=== PATIENT | male | born 1975 | race Caucasian/White ===

== ENCOUNTER 2017-12-24 01:02 | Inpatient (IN) | payer OTHER ==
[~2017-12-24] VITALS: Ht 185.4 cm; Wt 64.9 kg
[2017-12-24 01:50] VITALS: BP 150/82
--- NOTE | 2017-12-24 01:50 | NUR ---
BP:150/82, HR:93, RR:16, SpO2:97%, T:98 Pt is in stable condition and able to be admitted on the unit. Unit protocols regarding medications and vital signs Q4H were explained. Pt verbalized understanding. Will continue admission upon arrival on the unit.
[2017-12-24] MEDS ORDERED: BLOOD SUGAR DIAGNOSTIC 1 EACH STRIP VI ONE (03:00)
[2017-12-24] MEDS ORDERED: IBUPROFEN 400 MG TABLET PO PRN (03:00)
[2017-12-24] MEDS ORDERED: DICYCLOMINE HCL 20 MG TABLET PO PRN (03:00)
[2017-12-24] MEDS ORDERED: ACETAMINOPHEN 325 MG TABLET PO PRN (03:00)
[2017-12-24] MEDS ORDERED: ONDANSETRON ODT 4 MG TAB.RAPDIS SL PRN (03:00)
[2017-12-24] MEDS ORDERED: CLONIDINE HCL 0.1 MG TABLET PO PRN (03:00)
[2017-12-24] MEDS ORDERED: ONDANSETRON 4 MG/2 ML VIAL IM PRN (03:00)
[2017-12-24] MEDS ORDERED: diphenhydrAMINE 50 MG CAPSULE PO PRN (03:00)
[2017-12-24] MEDS ORDERED: THIAMINE HCL 200 MG/2 ML VIAL IM ONE (03:00)
[2017-12-24] MEDS ORDERED: LORAZEPAM 2 MG/1 ML VIAL IM PRN (03:00)
[2017-12-24] MEDS ORDERED: LOPERAMIDE HCL 2 MG CAPSULE PO PRN ×2 (03:00)
[2017-12-24] MEDS ORDERED: HYDROXYZINE PAMOATE 25 MG CAPSULE PO PRN (03:00)
[2017-12-24] MEDS ORDERED: MAG HYDROX/AL HYDROX/SIMETH 30 ML LIQUID UDC PO PRN (03:00)
[2017-12-24] MEDS ORDERED: MIRALAX 17 GM POWD.PACK PO PRN (03:00)
[2017-12-24] MEDS ORDERED: MAGNESIUM HYDROXIDE 30 ML LIQUID UDC PO PRN (03:00)
[2017-12-24] MEDS ORDERED: LORAZEPAM 1 MG TABLET PO PRN ×2 (03:00)
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
[2017-12-24] MEDS ORDERED: INSU1CAR11 IH (03:14)
[2017-12-24] MEDS ORDERED: VARE1TAB PO (03:14)
[2017-12-24] MEDS ORDERED: INSU100I24 SQ (03:14)
[2017-12-24] MEDS ORDERED: INSU100I14 (03:14)
[2017-12-24] MEDS ORDERED: ALPR0.5T8 PO (03:14)
[2017-12-24] MEDS ORDERED: INSU100I19 SQ (03:14)
[2017-12-24] MEDS ORDERED: CHOL50004 PO (03:14)
[2017-12-24] MEDS ORDERED: ATOR10TA PO (03:14)
[2017-12-24] MEDS ORDERED: ZOLP10TA6 PO (03:14)
[2017-12-24] MEDS ORDERED: INSULIN REGULAR, HUMAN 300 UNIT/3 ML VIAL SQ PRN (03:30)
[2017-12-24] MEDS ORDERED: DEXTROSE 50% 50 ML DISP.SYRIN IV PRN (03:30)
--- NOTE | 2017-12-24 03:30 | NUR ---
ACCKIRILL Pt's blood sugar 122. Does not require insulin per sliding scale.
[2017-12-24 03:41] LABS: BASOPHILS % (AUTO) 0.2 % (0.0-2.0); EOSINOPHILS % (AUTO) 0.8 % (0.0-7.0); HEMATOCRIT 44.2 % (36.7-47.1); HEMOGLOBIN 15.3 g/dL (12.5-16.3); LYMPHOCYTES # (AUTO) 1.6 K/uL (20.0-40.0); LYMPHOCYTES % (AUTO) 26.7 % (20.5-51.5); MEAN CORPUSCULAR HEMOGLOBIN 32.6 uug (23.8-33.4); MEAN CORPUSCULAR HGB CONC 35 g/dL (32.5-36.3); MEAN CORPUSCULAR VOLUME 93.8 fL (73.0-96.2); MONOCYTES # (AUTO) 0.7 K/uL (2.0-10.0); NEUTROPHILS # (AUTO) 3.8 K/uL (1.8-8.9); NEUTROPHILS % (AUTO) 61.3 % (38.5-71.5); PLATELET COUNT (AUTO) 146 K/uL (152-348); RED BLOOD CELL COUNT(AUTO) 4.71 MIL/uL (4.06-5.63); WHITE BLOOD COUNT (AUTO) 6.2 K/uL (3.6-10.2)
[2017-12-24] MEDS: BLOOD SUGAR DIAGNOSTIC 1 EACH STRIP VI SCH ×5 (03:44→20:53)
[2017-12-24 03:49] LABS: ETHANOL < 3 MG/DL (0-0)
[2017-12-24 03:51] LABS: ALANINE AMINOTRANSFERASE 92 U/L (16-63); ALKALINE PHOSPHATASE 81 U/L (50-136); AMYLASE 65 U/L (25-115); ASPARTATE AMINOTRANSFERASE 72 U/L (15-37); BILIRUBIN,TOTAL 0.7 mg/dL (0.2-1.0); CARBON DIOXIDE 29 mmol/L (21-32); CHLORIDE 99 mmol/L (98-107); CREATININE 0.8 mg/dL (0.6-1.3); GLUCOSE 105 mg/dL (74-106); LIPASE 220 U/L (73-393); MAGNESIUM 1.9 mg/dL (1.8-2.4); POTASSIUM 3.1 mmol/L (3.5-5.1); TOTAL PROTEIN, SERUM 8.2 g/dL (6.4-8.2); UREA NITROGEN, BLOOD 8 mg/dL (7-18)
[2017-12-24 04:00] VITALS: BP 135/85
[2017-12-24 04:03] LABS: THYROID STIMULATING HORMONE 2.463 mIU/mL (0.358-3.740)
[2017-12-24 04:21] LABS: *AMPHETAMINE, URINE NEGATIVE (NEGATIVE); *BARBITURATE, URINE NEGATIVE (NEGATIVE); *CANNABINOID, URINE POSITIVE (NEGATIVE); *COCCAINE, URINE NEGATIVE (NEGATIVE); *OPIATE, URINE NEGATIVE (NEGATIVE); *PHENCYCLIDINE SCREEN,URINE NEGATIVE (NEGATIVE)
--- NOTE | 2017-12-24 07:10 | NUR ---
END OF SHIFT Pt is a 42 year old male admitted on 12/24/17 for ETOH withdrawal. He remains alert and oriented x4. He was noted with anxiety, restlessness and mild tremors during the shift. He did not receive or request PRN medications. He is not on a taper but has PRN medications available. Pt is diabetic type 2. Last accucheck was 122. He slept a total of 1 hrs, Intake:200mL, Void: x1, BM:x1. Breathing is even and unlabored, safety measures in place. Will continue to monitor.
--- NOTE | 2017-12-24 07:17 | NUR ---
Start of shift note; Received report from night nurse. Patient is a 42 year old male admitted on 12/24/17 for ETOH/Benzodiazepine withdrawal. Patient is on a consistent carb diet for Diabetes type 2, last Blood sugar is 122 mg/dl. Patient slept for 1 hour. Patient's last CIWA score is 6 per endorsement. Patient presented with anxiety, generalized discomfort, stomach cramps, restless legs, intermittent sweats. Patient's potassium is 3.1 to be supplement today at 0900. Patient to be evaluated by MD during MD rounds. All safety measures secured. Will continue to monitor patient.
[2017-12-24] MEDS ORDERED: BLOOD SUGAR DIAGNOSTIC 1 EACH STRIP VI SCH (07:30)
[2017-12-24 08:00] VITALS: BP 126/85
--- NOTE | 2017-12-24 08:00 | NUR ---
CIWA assessment; Patient's current CIWA is 9 manifested by anxiety, agitation, stomach cramps, avoidant to eye contact, generalized discomfort . Will continue to monitor patient. Addendum: 12/24/17 at 1316 by NELY RICHARDS LVN Patient was started on 4 day Ativan taper, medication given per MD order. Addendum: 12/24/17 at 1317 by NELY RICHARDS LVN Taper order to start at 1300
[2017-12-24] MEDS: THIAMINE HCL 100 MG TABLET PO SCH (08:54)
[2017-12-24] MEDS: FOLIC ACID 1 MG TABLET PO SCH (08:54)
[2017-12-24] MEDS: MULTIVITAMINS,THERAPEUTIC TABLET PO SCH (08:54)
[2017-12-24] MEDS ORDERED: POTASSIUM CHLORIDE 20 MEQ TAB.PRT.SR PO ONE (09:00)
[2017-12-24] MEDS ORDERED: 5 DAY TAPER OF LORAZEPAM -SERENITY PROTOCOL PO PRN (11:00)
--- NOTE | 2017-12-24 11:38 | NUR ---
Insulin administration; Patient blood sugar is 183 mg/dl, 3 units of Humulin insulin given SQ per sliding scale protocol. Patient tolerated well.
[2017-12-24 12:00] VITALS: BP 131/84
--- NOTE | 2017-12-24 12:00 | NUR ---
CIWA assessment; Patient's current CIWA is 9 manifested by anxiety, agitation, stomach cramps, avoidant to eye contact, generalized discomfort . Will continue to monitor patient. Patient to start Ativan taper today at 1300 to help reduce withdrawal symptoms. Addendum: 12/24/17 at 1320 by NELY RICHARDS LVN Clarification; Current CIWA score of 15
[2017-12-24] MEDS ORDERED: LORAZEPAM 1 MG TABLET PO SCH (13:00)
[2017-12-24 16:00] VITALS: BP 131/84
--- NOTE | 2017-12-24 16:00 | NUR ---
CIWA assessment; Patient's current CIWA is 14 manifested by anxiety, agitation, stomach cramps, avoidant to eye contact, generalized discomfort, anhedonia, fatigue, intermittent sweats . Will continue to monitor patient. Patient started Ativan taper help reduce withdrawal symptoms.
[2017-12-24] MEDS ORDERED: HUMALOG KWIK SQ SCH (16:30)
[2017-12-24] MEDS: HUMALOG KWIK SQ SCH ×2 (17:05→20:53)
--- NOTE | 2017-12-24 17:05 | NUR ---
Insulin Administration; Accu check done, obtained 142 mg/dl. 2 units of Humalog insulin given on patient's ABD RLQ per protocol sliding scale, patient tolerated procedure well. Medication and dose verified with Dariela Medina RN. Addendum: 12/24/17 at 1723 by Dariela Medina RN Verify blood sugar reading was 142, and verified 2 units of Humalog given per sliding scale.
[2017-12-24] MEDS: LORAZEPAM 1 MG TABLET PO SCH ×2 (17:06→20:53)
--- NOTE | 2017-12-24 18:17 | NUR ---
End of shift note; Patient is AOx4, presented with anxiety, agitation, stomach cramps, avoidant to eye contact, generalized discomfort, anhedonia, fatigue, intermittent sweats. Last CIWA score of 14 at 1600. Patient was placed on 4 day Ativan taper to help reduce withdrawal symptoms. Medications were effective in reducing withdrawal symptoms. Patient remained compliant with treatment plan and medication regime. All safety measures secured. Met all needs.
--- NOTE | 2017-12-24 19:30 | NUR ---
START OF SHIFT Pt is a 42 year old male admitted on 12/24/17 for ETOH/Benzodiazepine withdrawal. Per endorsement from day shift, Pt is on a consistent carb diet for Diabetes type 2, last Blood sugar is 122 mg/dl. Pt's last CIWA score is 14. Pt received lying in bed,A/A/O X 4.Pt presented with anxiety, generalized discomfort and intermittent sweats. Pt's potassium was supplemented today . Pt started on 4 day Ativan taper today and is tolerating well. All safety measures in place. Will continue to monitor for safety.
[2017-12-24 20:00] VITALS: BP 128/81
--- NOTE | 2017-12-24 20:00 | NUR ---
CIWA assessment; Pt's current CIWA is 11. Pt is c/o anxiety, appears somewhat agitated, stomach cramps, c/o generalized discomfort and fatigue. Pt is soon due for medications to help reduce withdrawal symptoms.
[2017-12-24] MEDS ORDERED: ATORVASTATIN 10 MG TABLET PO SCH (21:00)
[2017-12-24] MEDS ORDERED: PATIENT MAY USE OWN MED- MD OK PO SCH (21:00)
--- NOTE | 2017-12-24 22:05 | NUR ---
PRN Benadryl 50 mg PO given for c/o insomnia; will monitor for effectiveness.
[2017-12-24] MEDS ORDERED: PATIENT MAY USE OWN MED- MD OK PO ONE (22:30)
--- NOTE | 2017-12-24 23:05 | NUR ---
PRN REASSESSMENT Pt is resting in bed with eyes closed,breathing is even and non labored,no s/s of distress noted,will continue to monitor.
[2017-12-24] MEDS ORDERED: INSULIN LISPRO 1000 UNITS/10 ML VIAL(HUMALOG) SQ ONE (23:15)
[2017-12-25] VITALS: BP 120/81
--- NOTE | 2017-12-25 | NUR ---
CIWA assessment; Pt's current CIWA is 8.Pt noted to be sleeping,woke up due to v/s monitoring,v/s are stable. Pt is c/o decreased anxiety,c/o generalized discomfort and fatigue. Refused to take any PRN Med,went back to sleep; will continue ro monitor.
--- NOTE | 2017-12-25 04:00 | NUR ---
CIWA DEFERRED Pt is in deep sleep,breathing is even and non labored,no s/s of distress noted,ciwa deferred,v/s refused,will continue to monitor.
--- NOTE | 2017-12-25 06:48 | NUR ---
END OF SHIFT Pt is a 42 year old male admitted on 12/24/17 for ETOH/Benzodiazepine withdrawal. Pt is on a consistent carb diet for Diabetes type 2 and is tolerating well. Pt's last CIWA score is 8. Pt was received lying in bed,A/A/O X 4.Pt presented with anxiety, generalized discomfort and intermittent sweat; continues on Ativan taper as ordered and is tolerating well. PO fluid encouraged as tolerated.PRN Benadryl was given last night with good effective.Pt slept 7 hours; fluid intake was 1210 ml,voided x 1. All safety measures in place. Will continue to monitor for safety.
[2017-12-25 07:40] LABS: BILIRUBIN,DIRECT 0.2 mg/dL (0.0-0.2); CREATININE 0.8 mg/dL (0.6-1.3); POTASSIUM 4.5 mmol/L (3.5-5.1); TOTAL PROTEIN, SERUM 7.4 g/dL (6.4-8.2)
--- NOTE | 2017-12-25 07:40 | NUR ---
START OF SHIFT 3 Received report from shift boss nurse. Pt is lying in bed resting and is easily arousable. He is a 41 yo male admitted to [facility] on 12/24 for ETOH and BZD withdrawal. 4 day Ativan taper started on 12/24. He has Diabetes Type II and is receiving his home insulin. PRN Benadryl administered on shift boss. Last CIWA was 8 and he slept for 7 hours. Respirations even and unlabored. Skin is warm and moist. Safety measures in place.
[2017-12-25 08:00] VITALS: BP 131/81
[2017-12-25 08:07] LABS: BASOPHILS % (AUTO) 0.2 % (0.0-2.0); EOSINOPHILS # (AUTO) 0.1 K/uL (0.0-0.7); MONOCYTES # (AUTO) 0.6 K/uL (2.0-10.0)
[2017-12-25] MEDS: BLOOD SUGAR DIAGNOSTIC 1 EACH STRIP VI SCH ×4 (08:12→21:25)
[2017-12-25] MEDS: HUMALOG KWIK SQ SCH ×4 (08:12→21:29)
[2017-12-25 08:16] LABS: EOSINOPHILS % (AUTO) 2.3 % (0.0-7.0); HEMATOCRIT 45.2 % (36.7-47.1); HEMOGLOBIN 15.4 g/dL (12.5-16.3); LYMPHOCYTES # (AUTO) 1.4 K/uL (20.0-40.0); LYMPHOCYTES % (AUTO) 31.4 % (20.5-51.5); MEAN CORPUSCULAR HGB CONC 34 g/dL (32.5-36.3); MONOCYTES % (AUTO) 12.3 % (0.0-11.0); NEUTROPHILS # (AUTO) 2.5 K/uL (1.8-8.9); NEUTROPHILS % (AUTO) 53.8 % (38.5-71.5); PLATELET COUNT (AUTO) 140 K/uL (152-348); RED BLOOD CELL COUNT(AUTO) 4.81 MIL/uL (4.06-5.63)
[2017-12-25 08:18] LABS: WHITE BLOOD COUNT (AUTO) 4.6 K/uL (3.6-10.2)
[2017-12-25] MEDS: INSULIN DEGLUDEC SQ SCH ×2 (08:24→08:26)
[2017-12-25] MEDS: THIAMINE HCL 100 MG TABLET PO SCH (08:27)
[2017-12-25] MEDS: FOLIC ACID 1 MG TABLET PO SCH (08:27)
[2017-12-25] MEDS: LISINOPRIL 5 MG TABLET PO SCH (08:28)
[2017-12-25] MEDS: MULTIVITAMINS,THERAPEUTIC TABLET PO SCH (08:28)
[2017-12-25] MEDS: LORAZEPAM 1 MG TABLET PO SCH ×4 (08:29→21:21)
--- NOTE | 2017-12-25 08:40 | NUR ---
CIWA Assessment Pt is moderately anxious and agitated this morning. He has pressured speech and his affect is flat. CIWA score 9.
[2017-12-25] MEDS: VARENICLINE 1 MG PO SCH ×2 (08:44→21:22)
[2017-12-25] MEDS: [UNRECOGNIZED DRUG - OTHER] PO SCH ×2 (08:44→21:22)
[2017-12-25] MEDS: VIT D 5000 UNIT PO SCH (08:44)
[2017-12-25] MEDS ORDERED: CHANTIX 1 MG PO SCH (09:00)
[2017-12-25] MEDS ORDERED: TUBERCULIN,PURIF.PROT.DERIV. 5 TU/0.1 ML TEST ID ONE (09:00)
[2017-12-25 10:56] LABS: HEPATITIS B SURFACE AG Negative (Negative)
[2017-12-25 12:30] VITALS: BP 140/89
--- NOTE | 2017-12-25 12:30 | NUR ---
CIWA Assessment Pt is moderately anxious and agitated. He is unable to relax in bed. His mood is labile and he is easily overwhelmed. He has moist skin and hand tremors. CIWA score 12.
[2017-12-25 16:30] VITALS: BP 132/100
--- NOTE | 2017-12-25 16:30 | NUR ---
CIWA assessment Pt is anxious and agitated with tremors. He is hyperverbal and easily agitated. His skin is moist. CIWA score 11.
--- NOTE | 2017-12-25 16:45 | NUR ---
PRN Clonidine Pt is anxious and agitated. B/P 132/100 and HR 110. PRN Clonidine administered.
[2017-12-25 17:45] VITALS: BP 110/67
--- NOTE | 2017-12-25 17:45 | NUR ---
PRN Clonidine reassessment PRN Clonidine effective. Pt's B/P 110/67. Pt is still somewhat anxious and preoccupied with outside issues. HR is 110. He denies pain or discomfort.
--- NOTE | 2017-12-25 19:20 | NUR ---
END OF SHIFT Report provided to night worker nurse. Pt is attending a group meeting. He is a 41 yo male admitted to [facility] on 12/24 for ETOH and BZD withdrawal. 4 day Ativan taper started on 12/24. Pt is diabetic and ordered sliding scale insulin ACHS. He was anxious and agitated throughout the shift. He was having racing thoughts and is preoccupied with outside issues. He required redirecting and reassurance. He was experiencing mild tachycardia throughout the day due to agitation. PRN Clonidine administered and effective for elevated B/P. He denied pain or discomfort. Last CIWA 11 and he drank 2500mL. Safety measures in place.
--- NOTE | 2017-12-25 19:30 | NUR ---
Start of shift note Received report from day shift nurse. Patient is a 42 year old male admitted from ETOH withdrawal. Patient is on 4 day Ativan taper. Patient with PMH of diabetes type 2. Last blood sugar check result was 202. Patient was given insulin as ordered. Clonidine PRN was given for BP-138/100 HR 110. BP after an hour was 110/67 HR 110. Patient is in the group meeting at this time. Safety measures in place. Will continue to monitor.
[2017-12-25 20:00] VITALS: BP 102/77
--- NOTE | 2017-12-25 20:00 | NUR ---
CIWA assessment Patient present with anxiety, restless, irritability, fidgety and agitated. CIWA 9.
[2017-12-25] MEDS ORDERED: TRAZODONE 50 MG TABLET PO ONE (21:00)
--- NOTE | 2017-12-25 21:21 | NUR ---
One time Trazadone administration Patient requests for sleep aid. Will monitor for effectiveness
[2017-12-25] MEDS: ATORVASTATIN 10 MG TABLET PO SCH (21:22)
--- NOTE | 2017-12-25 21:29 | NUR ---
Insulin administration Patient given 2 units of Humalog insulin as ordered. Verified to charge nurse Mat Mae. No verfication of signature available at [facility].
--- NOTE | 2017-12-25 23:00 | NUR ---
PRN Trazadone re-assessment Patient in bed with eyes closed. Respiration even and unlabored. Will continue to monitor
--- NOTE | 2017-12-26 | NUR ---
CIWA deferred Patient lying in bed with eyes closed. Respiration even and unlabored. VS refused. Will continue to monitor
--- NOTE | 2017-12-26 04:00 | NUR ---
CIWA deferred Patient lying in bed with eyes closed. Respiration even and unlabored. VS refused. Will continue to monitor
--- NOTE | 2017-12-26 07:17 | NUR ---
End of shift note Patient slept 6 hours. Fluid intake 1,605 ml. Voided x 3. No BM. Monitored patient throughout shift. Patient presented with anxiety, restless, irritability, fidgety and agitated. Blood sugar check done as ordered. Blood sugar 144 at 2100. Patient given 2 unit of Humalog Kwick pen as ordered. Scheduled medication and taper given as ordered , no adverse reaction noted. One time Trazadone given for difficulty sleeping. Safety measures in place. Call light in reach. Will continue to monitor. Last CIWA 9.
[2017-12-26] MEDS: HUMALOG KWIK SQ SCH ×4 (07:30→21:56)
[2017-12-26 08:00] VITALS: BP 112/73
[2017-12-26] MEDS: BLOOD SUGAR DIAGNOSTIC 1 EACH STRIP VI SCH ×4 (08:00→21:54)
--- NOTE | 2017-12-26 08:00 | NUR ---
Start of Shift Notes/CIWA Assessment: Received endorsement from night nurse. Patient is a 42 year old female admitted for ETOH withdrawal who was placed on a 4-day Ativan taper as ordered. No adverse reactions noted. Per night report, patient was given PRN Trazodone for sleep. Intermittently refuses care and on and mood swings during the night. Slept for 6 hours. Last CIWA 6. Patient is in his room. Awake, alert and verbally responsive. Emotionally volatile with loud speech noted. He appears highly agitated. Aggressively moving his belongings in the room and expressing discontent of not having his luggage at bedside. Rules and policies of the unit was explained. Reassurance was provided. Upon assessment, noted with CIWA 17 due to increased anxiety, agitation and gross tremors. Patient appears disheveled with poor regards to hygiene. Clothes thrown on the floor and at bedside. Encouraged maintenance of personal hygiene and space. Educated patient on his current plan of care for the day and his medication regimen. Encouraged oral fluid intake and encouraged group participation to learn new skills to prevent relapse. All needs met and attended. Will continue to monitor closely.
[2017-12-26] MEDS: LORAZEPAM 1 MG TABLET PO SCH ×3 (08:06→21:48)
[2017-12-26] MEDS: VIT D 5000 UNIT PO SCH (08:06)
[2017-12-26] MEDS: VARENICLINE 1 MG PO SCH ×2 (08:06→21:49)
[2017-12-26] MEDS: FOLIC ACID 1 MG TABLET PO SCH (08:06)
[2017-12-26] MEDS: LISINOPRIL 5 MG TABLET PO SCH (08:06)
[2017-12-26] MEDS: MULTIVITAMINS,THERAPEUTIC TABLET PO SCH (08:06)
[2017-12-26] MEDS: THIAMINE HCL 100 MG TABLET PO SCH (08:06)
[2017-12-26] MEDS: [UNRECOGNIZED DRUG - OTHER] PO SCH ×2 (08:06→21:49)
[2017-12-26] MEDS: INSULIN DEGLUDEC SQ SCH (08:08)
--- NOTE | 2017-12-26 10:48 | NUR ---
Therapist prompted client to attend group therapy.
[2017-12-26 12:00] VITALS: BP 117/69
--- NOTE | 2017-12-26 12:17 | NUR ---
CIWA Assessment: CIWA 13, patient presents with gross tremors, intermittent perspiration, facial flushing, anxiety and agitation. Will medicate patient as ordered.
[2017-12-26 16:00] VITALS: BP 125/86
--- NOTE | 2017-12-26 16:04 | NUR ---
CIWA Assessment: CIWA 11, patient continues to present with s/s of withdrawal m/b gross tremors, increased anxiety, agitation, intermittent perspiration and generalized discomfort. Will continue with detox meds as ordered.
--- NOTE | 2017-12-26 16:58 | NUR ---
New orders: Patient's Ativan taper modified by MD today.
--- NOTE | 2017-12-26 19:19 | NUR ---
End of Shift Notes: Patient continues to be on 4-day Ativan taper as ordered for ETOH withdrawal. VS monitored closely. No significant abnormalities noted. Withdrawal symptoms were closely monitored. Initial CIWA 17, patient presented with gross tremors, intermittent perspiration, anxiety, agitation, irritability, mood swings, easily overwhelmed, anhedonia and generalized discomfort. Last CIWA 11. Patient verbalizes that Ativan has been effective in reducing his withdrawal symptoms. BS checked q AC with Humalog insulin coverage per SS. No s/s of hypo/hyperglycemia noted. Participated in group and activities. All needs met and attended. Will continue to monitor closely.
--- NOTE | 2017-12-26 19:30 | NUR ---
Start of shift note Received report from day shift nurse. Patient is a 42 year old male admitted for ETOH withdrawal. Continue on Ativan taper. Patient did not require PRN medication. Last CIWA 11. Patient alert and oriented x 4. Patient presents with flat affect, labile, anxious, restless, irritable and agitated. Safety measures in place. Call light in reach. Will continue to monitor
[2017-12-26 20:00] VITALS: BP 129/70
--- NOTE | 2017-12-26 20:00 | NUR ---
CIWA assessment Patient anxious, restless, irritable, intermittent perspiration and agitated. CIWA 7.
[2017-12-26] MEDS ORDERED: TRAZODONE 50 MG TABLET PO ONE (21:00)
--- NOTE | 2017-12-26 21:48 | NUR ---
One time Trazadone administration Patient requests for sleep aid.
[2017-12-26] MEDS: ATORVASTATIN 10 MG TABLET PO SCH (21:49)
--- NOTE | 2017-12-26 23:00 | NUR ---
One time Trazadone re-assessment Patient lying in bed with eyes closed. Respiration even and unlabored. Will continue to monitor.
[2017-12-27] VITALS: BP 115/74
--- NOTE | 2017-12-27 | NUR ---
CIWA deferred Patient lying in bed with eyes closed. Respiration even and unlabored. Will continue to monitor.
[2017-12-27 04:00] VITALS: BP 125/72
--- NOTE | 2017-12-27 04:00 | NUR ---
CIWA deferred Patient lying in bed with eyes closed. Respiration even and unlabored. Will continue to monitor.
--- NOTE | 2017-12-27 07:16 | NUR ---
End of shift note Patient slept 6 hours. Fluid intake 2,000. Voided x 2 BM x 2 Patient presented with flat affect, labile, anxious, restless, irritable and agitated. Patient was given one time Trazadone for sleep. Safety measures in place. Call light in reach. Will continue to monitor. Last CIWA 7.
--- NOTE | 2017-12-27 07:19 | NUR ---
Start Of Shift Report received from spray painter helper nurse. Patient is a 42 year old male admitted for ETOH withdrawal. Per spray painter helper nurse pt's last CIWA was 7. Pt is continues Ativan taper . Upon start of shift pt noted laying in his bed with his eyes closed resting, breathing even and unlabored. Pt's room appears unorganized and messy. Pt appears anxious, sweaty and flushed. During assessment, pt is AOx4. Lung sounds clear bilaterally. Radial pulse is regular and non-bounding. Abdomen soft and non-tender. Pt's skin is warm and intact. Pt denies any pain at the moment. Encouraged pt to drink plenty of fluids to keep hydrated and help the detox process. Bed in lowest position. Pt got PRN Trazodone for insomnia last night which was effective per spray painter helper nurse. Side rails up x2. Call light functioning and within reach. All needs attended and met. Will continue to monitor.
[2017-12-27] MEDS: HUMALOG KWIK SQ SCH ×4 (07:30→21:01)
[2017-12-27 08:00] VITALS: BP 128/70
--- NOTE | 2017-12-27 08:00 | NUR ---
CIWA assessment Patient anxious, restless, restless legs, headache, myalgia and intermittent perspiration. CIWA 9.
[2017-12-27] MEDS: BLOOD SUGAR DIAGNOSTIC 1 EACH STRIP VI SCH ×4 (08:43→21:03)
[2017-12-27] MEDS: VARENICLINE 1 MG PO SCH ×2 (08:50→20:58)
[2017-12-27] MEDS: [UNRECOGNIZED DRUG - OTHER] PO SCH ×2 (08:50→20:58)
[2017-12-27] MEDS: THIAMINE HCL 100 MG TABLET PO SCH (08:51)
[2017-12-27] MEDS: VIT D 5000 UNIT PO SCH (08:51)
[2017-12-27] MEDS: FOLIC ACID 1 MG TABLET PO SCH (08:52)
[2017-12-27] MEDS: MULTIVITAMINS,THERAPEUTIC TABLET PO SCH (08:52)
[2017-12-27] MEDS: LISINOPRIL 5 MG TABLET PO SCH (08:52)
[2017-12-27] MEDS: INSULIN DEGLUDEC SQ SCH (08:53)
[2017-12-27] MEDS ORDERED: LORAZEPAM 1 MG TABLET PO SCH ×2 (09:00)
[2017-12-27 12:00] VITALS: BP 109/78
--- NOTE | 2017-12-27 12:00 | NUR ---
CIWA assessment Patient anxious, restless, restless legs, headache, and intermittent perspiration CIWA 9
[2017-12-27] MEDS ORDERED: LISI-607 PO (14:08)
[2017-12-27] MEDS ORDERED: TRAZ-213 PO (14:10)
[2017-12-27] MEDS ORDERED: TRAZODONE 50 MG TABLET PO PRN (14:15)
[2017-12-27 16:00] VITALS: BP 112/82
--- NOTE | 2017-12-27 19:08 | NUR ---
End of shift Report given to shift mgr nurse plan of care followed vital signs monitored closely Q4H. Withdrawal symptoms were closely monitored, medication given as scheduled. Initial CIWA 9. Pt encouraged adequate PO fluid intake as tolerated. Pt presented with sweats, flushed face, anxiety some agitation and yawning during the day. Pt received his scheduled taper medication as ordered. Pt did not receive any PRN medications during the day, Last CIWA 9. Pt reported that his taper medications have been working well at controlling his withdrawal symptoms. Pt ate all of his meals, pt attended all groups and activities to learn new coping skills to prevent relapse. Pts last BS was at 95 no coverage required. Pt denied any SI/HI. All safety measures in place, bed in lowest locked position, call light within reach. All needs met and attended.
--- NOTE | 2017-12-27 19:30 | NUR ---
START OF SHIFT Pt is a 42 y/o male admitted on 12/24/17 for ETOH withdrawal. Pt finished a 4 day Ativan taper and is set for discharge tomorrow. Last CIWA 9 and no PRNs administered during day shift. Upon assessment Pt was found in his room reading a book. Pt presented with anxiety, agitation, flushed skin, and is fidgety. Medications due. Safety measures in place. Call light within reach. Will continue to monitor.
[2017-12-27 20:00] VITALS: BP 122/80
--- NOTE | 2017-12-27 20:00 | NUR ---
CIWA 7 Pt presents with fine tremors, anxiety, agitation, and flushed skin. Safety measures in place. Call light within reach. Will continue to monitor.
[2017-12-27] MEDS: ATORVASTATIN 10 MG TABLET PO SCH (20:59)
--- NOTE | 2017-12-27 21:01 | NUR ---
BLOOD SUGAR 193 Pt's blood sugar is 193 on finger stick. Pt was cover with 3 units of Humalog, per order. Safety measures in place. Call light within reach. Will continue to monitor.
--- NOTE | 2017-12-27 22:28 | NUR ---
PRN TRAZODONE ADMINISTRATION Pt complains on agitation, anxiety, and difficulty falling and staying asleep. Pt was given Trazodone per order. Safety measures in place. Call light within reach. Will continue to monitor.
--- NOTE | 2017-12-27 23:28 | NUR ---
PRN TRAZODONE REASSESSMENT Pt was found laying in bed with his eyes closed. Respirations even and unlabored. Medication noted effective. Safety measures in place. Call light within reach. Will continue to monitor.
--- NOTE | 2017-12-28 | NUR ---
CIWA DEFERRED AND VITAL SIGNS REFUSED Patient is noted in bed with eyes closed. Breathing even and non labored. CIWA and vital signs not able to be completed per order. Safety measures in place. Call light within reach. Will continue to monitor.
--- NOTE | 2017-12-28 07:25 | NUR ---
END OF SHIFT Pt is a 42 y/o male admitted on 12/24/17 for ETOH withdrawal. Pt finished a 4 day Ativan taper and is set for discharge today. Pt presented with anxiety, agitation, flushed skin, and fidgety. PRN Trazodone administered, effective with S/S of withdrawal as verbalized per Pt. Last CIWA 5. Pt slept 8 hours. Intake 1250 ml, void x 2, stool x 0. Safety measures in place. Call light within reach. Pt's needs have been met. Endorsed to day shift.
--- NOTE | 2017-12-28 07:30 | NUR ---
START OF SHIFT Endorse rcvd from ongoing nurse, client is in room, a/o x 4, he presents with anxious mood, flat affect, agitation, flushed skin, and fidgety. Client reports feeling really anxious and angry because he wants to go out to the patio to smoke and wants to eat and we are doing nothing about his needs." Blood glucose will be checked and coverage administered as needed and client will be given food, he verbalized understanding. PRN Trazodone 50mg PO administered for insomnia, he slept 8 hours. Last CIWA 7 @ 2200. Client completed 4 day Ativan taper. He is schedule to be discharge to [facility] for continuity of treatment. Seizure precautions in place. Call light within reach.
[2017-12-28] MEDS: BLOOD SUGAR DIAGNOSTIC 1 EACH STRIP VI SCH (07:42)
[2017-12-28] MEDS: HUMALOG KWIK SQ SCH (07:42)
--- NOTE | 2017-12-28 07:44 | NUR ---
Blood glucose 135: 2 units Humalog kiwi Pen administered to R deltoid. Mat Singh RN witnessed dose and administration of medication.
[2017-12-28 08:12] VITALS: BP 132/85
[2017-12-28 09:19] VITALS: BP 132/85
[2017-12-28] MEDS: VIT D 5000 UNIT PO SCH (09:19)
[2017-12-28] MEDS: LISINOPRIL 5 MG TABLET PO SCH (09:19)
[2017-12-28] MEDS: VARENICLINE 1 MG PO SCH (09:19)
[2017-12-28] MEDS: MULTIVITAMINS,THERAPEUTIC TABLET PO SCH (09:19)
[2017-12-28] MEDS: THIAMINE HCL 100 MG TABLET PO SCH (09:19)
[2017-12-28] MEDS: [UNRECOGNIZED DRUG - OTHER] PO SCH (09:19)
[2017-12-28] MEDS: INSULIN DEGLUDEC SQ SCH (09:21)
[2017-12-28] MEDS: FOLIC ACID 1 MG TABLET PO SCH (09:23)
--- NOTE | 2017-12-28 09:52 | NUR ---
DISCHARGE NOTE Client is a/o x 4, fully ambulatory. Client denies any SI/HI. Client left [facility] unit with personal belongings, home medications, and prescription. To [facility] for continuity of treatment via [employer] [facility].
== END 2017-12-28 09:48 | disposition other institution (70) | DRG 895 ==
LOC: SRC 01:02
PROVIDERS: ADMIT Internal Medicine; ATTEND Internal Medicine
PROC: HZ2ZZZZ Detoxification Services for Substance Abuse Treatment (ICD-10-PCS; principal; 2017-12-24)
PROC: HZ41ZZZ Group Counseling for Substance Abuse Treatment, Behavioral (ICD-10-PCS; 2017-12-25)
PROC: HZ31ZZZ Individual Counseling for Substance Abuse Treatment, Behavioral (ICD-10-PCS; 2017-12-26)
DX: F10.230 Alcohol dependence with withdrawal, uncomplicated (principal); F13.230 Sedative, hypnotic or anxiolytic dependence with withdrawal, uncomplicated; F41.1 Generalized anxiety disorder; E55.9 Vitamin D deficiency, unspecified; E78.5 Hyperlipidemia, unspecified; E87.6 Hypokalemia; G47.00 Insomnia, unspecified; R74.0 Nonspecific elevation of levels of transaminase and lactic acid dehydrogenase [LDH]; E10.65 Type 1 diabetes mellitus with hyperglycemia; Z79.4 Long term (current) use of insulin; D69.6 Thrombocytopenia, unspecified; Y90.0 Blood alcohol level of less than 20 mg/100 ml; I10 Essential (primary) hypertension; F32.9 Major depressive disorder, single episode, unspecified; Z82.0 Family history of epilepsy and other diseases of the nervous system; Z83.3 Family history of diabetes mellitus; F17.210 Nicotine dependence, cigarettes, uncomplicated; F12.90 Cannabis use, unspecified, uncomplicated; A53.0 Latent syphilis, unspecified as early or late
CPT/HCPCS: 36415; 70030-TC; 80307; 80346; 80349; 83690; 83735; 84443; 85025; 86592; 86705; 86803; 87340; 87806; G0480; J1815; J3411; Q0163